=== PATIENT | female | born 1940 | race Asian ===

== ENCOUNTER 2023-01-09 06:58 | Inpatient (IN) | payer MEDICARE ==
[2023-01-03 16:52] LABS: BASOPHILS # (AUTO) 0.1 X10'3 (0-0.2); BASOPHILS % (AUTO) 0.9 % (0-1); EOSINOPHILS # (AUTO) 0.3 X10'3 (0-0.9); EOSINOPHILS % (AUTO) 4.8 % (0-6); LYMPHOCYTES # (AUTO) 2.1 X10'3 (1.1-4.8); LYMPHOCYTES % (AUTO) 29.7 % (21-51); MEAN CORPUSCULAR HGB CONC 33.8 g/dL (33.0-36.5); MEAN CORPUSCULAR VOLUME 91.8 FL (78-98); MEAN PLATELET VOLUME 8.2 FL (7.4-10.4); MONOCYTES # (AUTO) 0.5 X10'3 (0-0.9); MONOCYTES % (AUTO) 7.8 % (2-12); NEUTROPHILS # (AUTO) 3.9 X10'3 (1.8-7.7); NEUTROPHILS % (AUTO) 56.8 % (42-75); PRE OP HEMATOCRIT 38.6 % (35.0-45.0); PRE OP HEMOGLOBIN 13.1 g/dL (12.0-16.0); PRE OP PLATELET COUNT 208 X10'3 (140-440); RED BLOOD COUNT 4.21 X10'6 (4.20-5.60); RED CELL DISTRIBUTION WIDTH 14.3 % (11.5-14.5)
[2023-01-03 16:54] LABS: ALBUMIN 3.8 G/DL (3.4-5.0); ALBUMIN/GLOBULIN RATIO 1.1 (1.1-1.5); ALKALINE PHOSPHATASE 71 IU/L (46-116); BLOOD UREA NITROGEN 14 MG/DL (7-18); BUN/CREATININE RATIO 18.4 (6.6-38.0); CHLORIDE 105 MMOL/L (99-107); CREATININE 0.76 MG/DL (0.40-0.90); PRE OP ALT 12 U/L (30-65); PRE OP ANION GAP 9 (8-16); PRE OP AST 14 U/L (10-37); PRE OP BILIRUB, TOTAL 0.5 MG/DL (0.0-1.0); PRE OP GLUCOSE 164 MG/DL (70-104); PRE OP POTASSIUM 4.2 MMOL/L (3.4-5.1); PRE OP SODIUM 142 MMOL/L (135-145); TOTAL CARBON DIOXIDE 27.8 MMOL/L (24-32); TOTAL PROTEIN 7.4 G/DL (6.4-8.2); eGFR 73 ML/MIN
[2023-01-03 16:58] LABS: HEMOGLOBIN A1C 6.1 % (4.5-6.2)
[2023-01-09] VITALS (39 sets, daily range): BP systolic 92–150; BP diastolic 49–100
[~2023-01-09] VITALS: Ht 152.4 cm; Wt 62.9 kg
[~2023-01-09 06:58] MED LIST: AMLO5TAB16 PO; ASCO-10 PO; CELE200C PO; CHOL20003 PO; CYAN-51 PO; IBUP-1986 PO; METF-1203 PO; NAPR220T67 PO; SIMV-45 PO; VIT1CAPS9 PO; famotidine 20mg tablet PO ONE; ringers solution, lacted 1,000 ML IV SCH; vancomycin/NS 1 GM ADD-VANTAGE 250 ML IV ONE
[2023-01-09] MEDS ORDERED: glucagon, human recombinant 1mg kit SUBCUT PRN (07:00)
[2023-01-09] MEDS ORDERED: diphenhydrAMINE 25mg capsule PO PRN ×2 (07:00)
[2023-01-09] MEDS ORDERED: bisacodyl 10mg suppository rectal RC PRN (07:00)
[2023-01-09] MEDS ORDERED: HYDROmorphone 1 mg/ml syringe IV PRN (07:00)
[2023-01-09] MEDS ORDERED: acetaminophen 325mg tablet PO PRN (07:00)
[2023-01-09] MEDS ORDERED: ondansetron/PF 4mg/2ml inj IV PRN ×2 (07:00→10:15)
[2023-01-09] MEDS ORDERED: magnesium hydroxide 30ml (MOM) UD suspension PO PRN (07:00)
[2023-01-09] MEDS ORDERED: MESSAGE TO PHARMACY PO ONE (07:00)
[2023-01-09] MEDS ORDERED: insulin Lispro (HumaLOG) vial - multi-dose SQ SCH (07:00)
[2023-01-09] MEDS ORDERED: dextrose 50%-water 50ml dispensing syringe IV PRN ×2 (07:00)
[2023-01-09] MEDS ORDERED: HYDROmorphone inj. 0.5 MG/0.5 ML DISP.SYRIN IV PRN (07:00)
[2023-01-09] MEDS ORDERED: HYDROcodone/acetaminophen 10/325mg tab PO PRN (07:00)
[2023-01-09] MEDS ORDERED: naloxone 0.4 mg/ml inj IV PRN (07:00)
[2023-01-09] MEDS ORDERED: DEXTROSE 15 GM of carb/4 tabs (each vial/BOTTLE has 4 tablets) PO PRN ×2 (07:00)
[2023-01-09] MEDS ORDERED: NORMAL SALINE IV ONE ×2 (07:15→16:00)
[2023-01-09] MEDS ORDERED: TRANEXAMIC ACID IV ONE ×2 (07:15→16:00)
[2023-01-09] MEDS ORDERED: vancomycin/NS 1 GM ADD-VANTAGE 250 ML IV SCH (08:00)
--- NOTE | 2023-01-09 08:00 | NUR ---
PT HAS GOOD PULSES BLE, CSM INTACT, ABLE TO COMPLETE 5 SHOWERS INSTRUCTED, NO OINTMENT PER REVIEWED GIVEN JOINT RESOURCES
[2023-01-09] MEDS ORDERED: epiNEPHrine 1 mg/ml inj ONE (09:25)
[2023-01-09] MEDS ORDERED: cloNIDine hcl/PF 100mcg/ml inj ONE (09:25)
[2023-01-09] MEDS ORDERED: ROPIVAcaine 0.5% (5mg/ml) 30ml vial ONE (09:25)
[2023-01-09] MEDS ORDERED: vancomycin 1,000mg inj ONE (09:25)
[2023-01-09] MEDS ORDERED: fentaNYL/PF 50MCG/1 ML 2ML syringe ONE (09:42)
[2023-01-09] MEDS ORDERED: midazolam 1 mg/ML 2ml injection ONE ×2 (09:50)
[2023-01-09] MEDS ORDERED: morphine 2 MG/ML inj. syringe IV PRN (10:15)
[2023-01-09] MEDS ORDERED: fentaNYL/PF 50MCG/1 ML 2ML syringe IV PRN (10:15)
[2023-01-09] MEDS ORDERED: ringers solution, lacted 1,000 ML IV SCH (10:15)
[2023-01-09] MEDS ORDERED: hydrALAZINE 20mg/ml inj. IV PRN (10:15)
[2023-01-09] MEDS ORDERED: labetalol 20mg/4ml (5mg/ml) syringe IV PRN (10:15)
[2023-01-09] MEDS ORDERED: morphine 4 MG/ML inj SYRINge IV PRN (10:15)
[2023-01-09] MEDS ORDERED: ROPIVAcaine 0.5% (5mg/ml) 30ml vial IJ ONE (10:38)
[2023-01-09] MEDS ORDERED: cloNIDine hcl/PF 100mcg/ml inj EP ONE (10:39)
[2023-01-09] MEDS ORDERED: epiNEPHrine 1 mg/ml inj SQ ONE (10:40)
--- NOTE | 2023-01-09 11:03 | NUR ---
Received from OR via , accompanied by Anesthesiologist DR LOJA and report given by Anesthesiolgist. VVS. MASK ON 10 LITERS. IV IN RIGHTWRIST 20 G. FERMIN DRSSING ON LEFT HIP WITH KNEE IMMOBILIZER. Addendum: 01/09/23 at 1128 by Deyanira Amador RN Amended: Links added.
[2023-01-09] MEDS: fentaNYL/PF 50MCG/1 ML 2ML syringe IV PRN ×2 (13:52→14:08)
--- NOTE | 2023-01-09 16:05 | NUR ---
Received report from Deyanira RUBY, Patient settled and orientated to room, educated international freight forwarder light, Post-op Vital signs started.
[2023-01-09] MEDS: ceFAZolin/D5W- 1GM premix 50 ML IV SCH (16:07)
[2023-01-09] MEDS: potassium cl 20mEq in 1/2 NS 1,000 ML IV SCH ×3 (16:12→19:31)
--- NOTE | 2023-01-09 16:41 | NUR ---
PATIENT MEETS DISCHARGE CRITERIA. VSS. CALLED REPORT TO MITZY RUBY. TOOK PATIENTTOT HE FLOOR, LOWERED AND LOCKED THE BED, CALL LIGHT WITHIN REACH. STARTED V/S AND NURSE CAME TO BEDSIDE Addendum: 01/09/23 at 1643 by Deyanira Amador RN Amended: Links added.
[2023-01-09] MEDS: HYDROcodone/acetaminophen 10/325mg tab PO PRN (17:49)
--- NOTE | 2023-01-09 18:34 | NUR ---
Problems reprioritized. Patient report given, questions answered & plan of care reviewed with Shannon RUBY.
--- NOTE | 2023-01-09 18:39 | NUR ---
Report received from Tracy RUBY.
[2023-01-09] MEDS: vancomycin/NS 1 GM ADD-VANTAGE 250 ML IV SCH (19:30)
[2023-01-09] MEDS: ascorbic acid 500mg tablet PO SCH (20:00)
[2023-01-09] MEDS: sennosides 8.6mg tablet PO SCH (21:00)
[2023-01-09] MEDS: atorvastatin 20mg tablet PO SCH ×2 (21:00→22:35)
[2023-01-09] MEDS: gabapentin 300mg capsule PO SCH ×2 (21:00→22:36)
[2023-01-09] MEDS: insulin glargine (Lantus) pen - multi-dose SQ SCH (21:00)
[2023-01-09] MEDS ORDERED: scopolamine 1.5mg patch.TD72 (72-hour patch) TD ONE (21:20)
[2023-01-09] MEDS ORDERED: proCHLORperazine 10 MG/2 ml inj IV PRN (21:20)
[2023-01-10] MEDS: ceFAZolin/D5W- 1GM premix 50 ML IV SCH (00:41)
[2023-01-10 03:00] VITALS: BP 112/73
--- NOTE | 2023-01-10 03:24 | NUR ---
still nauseated with movement dry heaves. gave some compazine.
[2023-01-10 05:00] VITALS: BP 116/65
--- NOTE | 2023-01-10 06:05 | NUR ---
Report to Aliyah RUBY.
[2023-01-10 06:50] LABS: BASOPHILS % (AUTO) 0.4 % (0-1); EOSINOPHILS % (AUTO) 0 % (0-6); HEMATOCRIT 30.9 % (35.0-45.0); HEMOGLOBIN 10.4 g/dl (12.0-16.0); LYMPHOCYTES % (AUTO) 10.9 % (21-51); MEAN CORPUSCULAR HGB CONC 33.7 g/dL (33.0-36.5); MEAN CORPUSCULAR VOLUME 91.9 FL (78-98); MEAN PLATELET VOLUME 8.3 FL (7.4-10.4); MONOCYTES # (AUTO) 0.7 X10'3 (0-0.9); MONOCYTES % (AUTO) 7.8 % (2-12); NEUTROPHILS # (AUTO) 7.2 X10'3 (1.8-7.7); NEUTROPHILS % (AUTO) 80.9 % (42-75); PLATELET COUNT 176 X10'3 (140-440); RED BLOOD COUNT 3.37 X10'6 (4.20-5.60); RED CELL DISTRIBUTION WIDTH 14.5 % (11.5-14.5); WHITE BLOOD COUNT 8.9 X10'3 (4.5-11.0)
--- NOTE | 2023-01-10 07:06 | NUR ---
Patient in room [facility]. I have received report from Shannon RUBY and had the opportunity to ask questions and assume patient care.
[2023-01-10 07:07] LABS: ANION GAP 4 (8-16); CHLORIDE 103 MMOL/L (99-107); POTASSIUM 4.2 MMOL/L (3.5-5.1); SODIUM 136 MMOL/L (135-145); TOTAL CARBON DIOXIDE 28.8 MMOL/L (24-32)
[2023-01-10] MEDS: vancomycin/NS 1 GM ADD-VANTAGE 250 ML IV SCH (08:25)
[2023-01-10] MEDS: aspirin 325mg tablet PO SCH (08:26)
[2023-01-10] MEDS: multivitamins, therapeutics tablet PO SCH (08:26)
[2023-01-10] MEDS: ascorbic acid 500mg tablet PO SCH ×2 (08:27→20:00)
[2023-01-10] MEDS: gabapentin 300mg capsule PO SCH ×3 (08:27→21:05)
[2023-01-10] MEDS: amLODIPine 5mg tablet PO SCH (08:27)
[2023-01-10 10:52] VITALS: BP 116/65
--- NOTE | 2023-01-10 10:56 | NUR ---
Joint surgery consult: Pt s/p L hip surgery this admit per EMR. Pt seen by KWESI for written/verbal high protein diet ed w/ RD contact information provided. KWESI encouraged pt to contact dietitian's office if further nutrition questions/concerns. Addendum: 01/10/23 at [address] Amended: Links added. Addendum: 01/10/23 at [address] Joint surgery consult: Pt s/p L hip surgery this admit per EMR. Pt seen by KWESI for written/verbal high protein diet ed w/ RD contact information provided. KWESI encouraged pt to contact dietitian's office if further nutrition questions/concerns. Noted pt on carb controlled diet w/ no PMH DM A1C 6.1% per EMR; KWESI d/w RN regarding liberalizing to regular diet if MD agreeable.
[2023-01-10 11:10] VITALS: BP 129/60
[2023-01-10] MEDS: potassium cl 20mEq in 1/2 NS 1,000 ML IV SCH ×2 (16:53→18:31)
[2023-01-10 18:00] VITALS: BP 108/56
--- NOTE | 2023-01-10 18:47 | NUR ---
patient medicated x1 with [place] good result. Ambulated with PT see note. report given to Gisell RUBY
[2023-01-10] MEDS: sennosides 8.6mg tablet PO SCH (21:00)
[2023-01-10] MEDS: insulin glargine (Lantus) pen - multi-dose SQ SCH (21:00)
--- NOTE | 2023-01-10 21:00 | NUR ---
PT DINNER TRAY REMOVED NO TICKET LEFT UNABLE TO ASSESS CARB COUNT.
[2023-01-10 21:04] VITALS: BP 130/61
[2023-01-10] MEDS: celeCOXIB 100mg capsule PO SCH (21:04)
[2023-01-10] MEDS: atorvastatin 20mg tablet PO SCH (21:05)
[2023-01-10] MEDS: HYDROcodone/acetaminophen 10/325mg tab PO PRN (21:05)
[2023-01-11 06:09] VITALS: BP 132/66
[2023-01-11] MEDS: HYDROcodone/acetaminophen 10/325mg tab PO PRN (06:11)
--- NOTE | 2023-01-11 06:54 | NUR ---
Problems reprioritized. Patient report given, questions answered & plan of care reviewed with TUNG MENDEZ.
[2023-01-11 07:03] LABS: BASOPHILS # (AUTO) 0.1 X10'3 (0-0.2); BASOPHILS % (AUTO) 0.6 % (0-1); EOSINOPHILS # (AUTO) 0.2 X10'3 (0-0.9); EOSINOPHILS % (AUTO) 1.8 % (0-6); HEMATOCRIT 29.5 % (35.0-45.0); HEMOGLOBIN 9.8 g/dl (12.0-16.0); LYMPHOCYTES # (AUTO) 1.3 X10'3 (1.1-4.8); MEAN CORPUSCULAR HGB CONC 33.2 g/dL (33.0-36.5); MEAN CORPUSCULAR VOLUME 93.1 FL (78-98); MEAN PLATELET VOLUME 8.3 FL (7.4-10.4); MONOCYTES # (AUTO) 0.9 X10'3 (0-0.9); MONOCYTES % (AUTO) 10.1 % (2-12); NEUTROPHILS # (AUTO) 6.5 X10'3 (1.8-7.7); NEUTROPHILS % (AUTO) 72.5 % (42-75); PLATELET COUNT 158 X10'3 (140-440); RED BLOOD COUNT 3.16 X10'6 (4.20-5.60); RED CELL DISTRIBUTION WIDTH 15.2 % (11.5-14.5); WHITE BLOOD COUNT 8.9 X10'3 (4.5-11.0)
--- NOTE | 2023-01-11 07:26 | NUR ---
Patient in room [facility]. I have received report from ALLEN RUBY and had the opportunity to ask questions and assume patient care.
[2023-01-11] MEDS: aspirin 325mg tablet PO SCH (07:45)
[2023-01-11] MEDS: celeCOXIB 100mg capsule PO SCH (07:45)
[2023-01-11] MEDS: gabapentin 300mg capsule PO SCH (07:45)
[2023-01-11] MEDS: ascorbic acid 500mg tablet PO SCH (07:45)
[2023-01-11] MEDS: multivitamins, therapeutics tablet PO SCH (07:45)
[2023-01-11 07:47] VITALS: BP_SYST 132
[2023-01-11] MEDS: amLODIPine 5mg tablet PO SCH (07:47)
--- NOTE | 2023-01-11 15:55 | NUR ---
patient denies pain, seen by Dr sarabia and cleared by PT is for DC. All Dc instructions given to patient and daughter. patient Dc home via private car in stable condition
== END 2023-01-11 14:35 | disposition home or self-care (01) | DRG 470 ==
LOC: PAS 06:58 → SUR 3N 16:05
PROVIDERS: ADMIT Orthopaedic Surgery; ATTEND Orthopaedic Surgery
PROC: 0SRB06Z Replacement of Left Hip Joint with Oxidized Zirconium on Polyethylene Synthetic Substitute, Open Approach (ICD-10-PCS; principal; 2023-01-09 09:35)
DX: M16.12 Unilateral primary osteoarthritis, left hip (principal); Z79.82 Long term (current) use of aspirin; R11.0 Nausea; Z79.899 Other long term (current) drug therapy
CPT/HCPCS: 36415; 72170; 80051; 80053; 82948; 83036; 85025; 86885; 86900; 86901; 87081; 97116; 97161; 97530; A6212; A7000; C1776; G0378; J0171; J0690; J0735; J0780; J1170; J1815; J2250; J2270; J2405; J2795; J3010; J3370; J3480; J3490; J7060; J7120